=== PATIENT | male | born 2000 | race Caucasian/White ===

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

== ENCOUNTER 2021-05-16 12:10 | Emergency (ER) | payer OTHER ==
[~2021-05-16] VITALS: Ht 190.5 cm; Wt 103.9 kg
== END 2021-05-16 14:16 | disposition home or self-care (01) ==
LOC: ED 12:10
DX: S61.412A Laceration without foreign body of left hand, initial encounter (principal); Z88.1 Allergy status to other antibiotic agents; W22.8XXA Striking against or struck by other objects, initial encounter; Y93.89 Activity, other specified; Y92.89 Other specified places as the place of occurrence of the external cause; Y99.8 Other external cause status

== ENCOUNTER → 2022-02-22 | Outpatient (CLI) | payer OTHER ==
[~2022-02-22] MED LIST changes: +ONDANSETRON HYDR4 M1 PO
== END | disposition home or self-care (01) ==
LOC: ORTHO 01:02
PROVIDERS: ATTEND Orthopaedic Surgery
DX: M65.322 Trigger finger, left index finger (principal); S69.92XS Unspecified injury of left wrist, hand and finger(s), sequela; X58.XXXS Exposure to other specified factors, sequela

== ENCOUNTER 2022-02-23 15:59 | Emergency (ER) | payer OTHER ==
[~2022-02-23] VITALS: Ht 157.4 cm; Wt 90.7 kg
[~2022-02-23 15:59] MED LIST changes: -ONDANSETRON HYDR4 M1 PO
[2022-02-23 17:48] LABS: BASO % 0.3 % (0.0-1.0); EOS % 0.1 % (1.0-4.0); HEMATOCRIT 46.9 % (42.0-52.0); LYMPH # 1.3 10*3/uL (1.3-4.4); LYMPH % 17.3 % (27.0-41.0); MEAN CELL VOLUME 83.2 fl (80.0-94.0); MEAN CORPUSCULAR HGB CONC 33.7 g/dl (33.0-37.0); MEAN PLATELET VOLUME 9.8 fl (9.6-12.3); MONO # 0.7 10*3/uL (0.1-1.0); MONO % 9.1 % (3.0-9.0); NEUT # 5.4 10*3/uL (2.3-7.9); NEUT % 73.1 % (47.0-73.0); PLATELET COUNT AUTOMATED 203 10*3/uL (130-400); RED BLOOD COUNT 5.64 10*6/uL (4.50-5.90); RED CELL DISTRI WIDTH 12.2 % (0-14.5); WHITE BLOOD COUNT 7.4 10*3/uL (4.8-10.8)
[2022-02-23 18:03] LABS: ALKALINE PHOSPHATASE 76 U/L (46-116); BUN 14 mg/dl (9-23); CHLORIDE 103 mmol/L (98-107); CREATININE 0.84 mg/dL (0.70-1.30); POTASSIUM 3.5 mmol/L (3.4-5.1); SGPT/ALT 34 U/L (10-49); SODIUM 139 mmol/L (136-145); TOTAL PROTEIN 7.5 gm/dL (6.0-8.0)
[2022-02-23] MEDS ORDERED: ONDANSETRON HYDR4 M1 PO (18:32)
== END 2022-02-23 18:55 | disposition home or self-care (01) ==
LOC: ED 15:59
PROVIDERS: Student in an Organized Health Care Education/Training Program
DX: R11.10 Vomiting, unspecified (principal); Z88.1 Allergy status to other antibiotic agents

== ENCOUNTER → 2022-10-11 | Outpatient (CLI) | payer OTHER ==
[~2022-10-11] MED LIST changes: +ONDANSETRON HYDR4 M1 PO
[2022-10-11 13:13] LABS: ACT PARTIAL THROMBO TIME 27.2 SECONDS (20.0-32.1)
== END | disposition home or self-care (01) ==
LOC: LAB 12:39
PROVIDERS: ATTEND Student in an Organized Health Care Education/Training Program
DX: R23.3 Spontaneous ecchymoses (principal)

== ENCOUNTER 2023-02-16 17:52 | Emergency (ER) | payer OTHER ==
[~2023-02-16] VITALS: Wt 104.3 kg
[2023-02-16] MEDS ORDERED: AVPAK AZITHROM250 M1 PO (18:35)
== END 2023-02-16 18:42 | disposition home or self-care (01) ==
LOC: ED 17:52
DX: J32.9 Chronic sinusitis, unspecified (principal); Z20.822 Contact with and (suspected) exposure to COVID-19; Z88.6 Allergy status to analgesic agent; Z98.890 Other specified postprocedural states; F17.290 Nicotine dependence, other tobacco product, uncomplicated

== ENCOUNTER → 2023-11-05 | Outpatient (CLI) | payer OTHER ==
[~2023-11-05] MED LIST changes: +AVPAK AZITHROM250 M1 PO
[2023-11-05 14:29] LABS: FREE T4 1.45 ng/dl (0.89-1.76); T3 UPTAKE 33.3 % (22.4-36.7)
[2023-11-06 07:07] LABS: HEPATITIS B SURFACE AB Non Reactive (.); HEPATITIS B SURFACE AG Negative (Negative)
[2023-11-06 16:09] LABS: t-TRANSGLUTAMINASE (tTG) IGA <2 U/mL (0-3); t-TRANSGLUTAMINASE (tTG) IgG 3 U/mL (0-5)
== END | disposition home or self-care (01) ==
LOC: LAB 13:18
PROVIDERS: Nurse Practitioner Family; ATTEND Nurse Practitioner Family
DX: R19.7 Diarrhea, unspecified (principal)

== ENCOUNTER → 2023-11-06 | Outpatient (CLI) | payer OTHER | END | disposition home or self-care (01) | LOC: US 01:02 | PROVIDERS: ATTEND Nurse Practitioner Family | DX: M79.89 Other specified soft tissue disorders (principal) ==

== ENCOUNTER 2023-11-20 17:12 | Emergency (ER) | payer OTHER ==
[~2023-11-20] VITALS: Ht 187.9 cm; Wt 116.1 kg
[2023-11-20] MEDS ORDERED: CYCLOBENZAPRINE10 MG PO (17:40)
[2023-11-20] MEDS ORDERED: Cyclobenzaprine Hydrochlorid 10 MG TAB PO ONE (17:45)
== END 2023-11-20 17:44 | disposition home or self-care (01) ==
LOC: ED 17:12
DX: S76.911A Strain of unspecified muscles, fascia and tendons at thigh level, right thigh, initial encounter (principal); Z88.6 Allergy status to analgesic agent; Z98.890 Other specified postprocedural states; X58.XXXA Exposure to other specified factors, initial encounter; Y93.89 Activity, other specified; Y92.89 Other specified places as the place of occurrence of the external cause; Y99.8 Other external cause status

== ENCOUNTER 2024-07-18 19:44 | Emergency (ER) | payer OTHER ==
[~2024-07-18] VITALS: Ht 187.9 cm; Wt 112.6 kg
[~2024-07-18 19:44] MED LIST changes: +CYCLOBENZAPRINE10 MG PO
[2024-07-18] MEDS ORDERED: NAPROSYN500 MG PO (22:06)
[2024-07-18] MEDS ORDERED: Ketorolac Tromethamine 60 MG/2 ML VIAL IM ONE (22:10)
== END 2024-07-18 22:14 | disposition home or self-care (01) ==
LOC: ED 19:44
DX: S66.911A Strain of unspecified muscle, fascia and tendon at wrist and hand level, right hand, initial encounter (principal); X58.XXXA Exposure to other specified factors, initial encounter; Y93.89 Activity, other specified; Y92.89 Other specified places as the place of occurrence of the external cause; Y99.8 Other external cause status

== ENCOUNTER 2024-07-27 17:04 | Emergency (ER) | payer OTHER ==
[~2024-07-27] VITALS: Ht 187.9 cm; Wt 112.3 kg
[~2024-07-27 17:04] MED LIST changes: +NAPROSYN500 MG PO
== END 2024-07-27 17:38 | disposition home or self-care (01) ==
LOC: ED 17:04
DX: L55.0 Sunburn of first degree (principal); Z79.899 Other long term (current) drug therapy; Z88.1 Allergy status to other antibiotic agents; Z91.030 Bee allergy status; Z98.890 Other specified postprocedural states